=== PATIENT | male | born 1995 | race Caucasian/White ===

== ENCOUNTER 2016-09-03 19:59 | Emergency (ER) | payer OTHER ==
--- NOTE | 2016-09-03 21:01 | DIAGNOSTIC IMAGING REPORT ---
PROCEDURE: CT HEAD WITHOUT CONTRAST INDICATION: HEADACHE TECHNIQUE: Noncontrast axial images with sagittal and coronal reformations. COMPARISON: None. FINDINGS: Brain and ventricles are normal. No evidence of an acute process or hemorrhage. Mild to moderate mucosal thickening in the left anterior ethmoid air cells with mild changes in the right anterior ethmoid air cells. There is a 1.5 cm chronic retention cyst in the right maxillary sinus. The rest of the sinuses and mastoids are normal IMPRESSION: 1. Mild to moderate mucosal thickening in anterior ethmoid air cells (left greater right). Findings are compatible with sinusitis (acute versus chronic). 2. Otherwise negative head CT. No evidence of intracranial abnormality. 3. Findings discussed with BRAN Carvajal at [address] scans at this facility use dose modulation, iterative reconstruction, and/or weight-based dosing when appropriate to reduce radiation dose to as low as reasonably achievable.
--- NOTE | 2016-09-03 21:03 | ED ORDER SUMMARY ---
..... Patient: MARCO NOLAN OrderSheet [facility] VisitID: [id number] [place] [address] 20y, M Registration Date/Time: 09/03/2016 ORDER SHEET Weight: 74.8 kg (stated) Allergies: No Known Drug Allergy GENERAL ORDERS: CT Head wo Cont Urgent (20:35 09/03/2016 HBivens A.R.N.P.) (Ack 20:39 AMcQuoid ER Tech1) (21:06 MCampbell) MEDICATION ORDERS: IV FLUIDS: Reglan IV 10 mg (NOW) (20:35 09/03/2016 HBivens A.R.N.P.) (Ack 20:45 EInderbitzen R.N.) (20:55 EInderbitzen R.N.) Toradol IV 30 mg (NOW) (20:35 09/03/2016 HBivens A.R.N.P.) (Ack 20:45 EInderbitzen R.N.) (20:55 EInderbitzen R.N.) Benadryl IV 25 mg (NOW) (20:35 09/03/2016 HBivens A.R.N.P.) (Ack 20:45 EInderbitzen R.N.) (20:55 EInderbitzen R.N.) ORDER SHEET NOTES: [Electronically signed by Patti Hidalgo R.N. (21:32 09/03/2016)] [Electronically signed by Maya Amato A.R.N.P. (21:44 09/03/2016)] [Electronically locked/signed by Patti Hidalgo R.N. (21:32 09/03/2016)]
--- NOTE | 2016-09-03 21:03 | ED CLINICAL REPORT ---
Clinical Report - Physicians/Mid Levels [facility] [address] [place] [address] 09/03/2016 20:01 Patient: MARCO NOLAN Time Seen: 20:29; initial patient contact, initial documentation, patient care assumed. Arrived- By private vehicle. Historian- patient. HISTORY OF PRESENT ILLNESS Chief Complaint: HEADACHE. Is still present. This started today. It is described as "pain". Located in the region of the left eye, left temporal region and facial region. No neck pain. At its maximum, severity described as severe. When seen in the E.D., severity described as severe. Modifying factors: worsened by bright light. The patient has had photophobia. There has been no eye redness or discharge, matting or foreign body sensation. He has had nausea and vomiting. The vomiting has occurred only once. No preceding symptoms, blurred vision, numbness or weakness. (took significant others imitrex, and he threw it up). No recent travel. Similar symptoms previously: None. Recent medical care: Not recently seen/assessed. REVIEW OF SYSTEMS No fever, ear pain, sore throat or head injury. He has had sinus pressure and a cough. couple of days ago, came down with cold, stuffy nose, cough, congestion, sinus pain. All systems otherwise negative, except as recorded above. PAST HISTORY Negative. SOCIAL HISTORY Never smoker. Occasional alcohol use. No drug use. No recent travel. Is a local resident. FAMILY HISTORY Hypertension in first-degree relative (father). ADDITIONAL NOTES The nursing notes have been reviewed with agreement regarding the chief complaint, HPI, ROS, PMH and patient medications and allergies. PHYSICAL EXAM Vital Signs: 09/03/2016 20:13 BP: 147/96. HR: 64. RR: 18. O2 saturation: 100%. Temp: 97.6 F. Pain level now: 10/10. Have been reviewed as normal and appear to be correct. Appearance: Alert. No acute distress. Eyes: Pupils equal, round and reactive to light. Eyes normal inspection. ENT: Ears normal. Nose normal. Pharynx normal. Neck: Normal inspection. Neck supple. CVS: Normal heart rate and rhythm. Heart sounds normal. Pulses normal. Respiratory: No respiratory distress. Breath sounds normal. Abdomen: Soft and nontender. No organomegaly. Back: Normal inspection. Skin: Skin warm and dry. Normal skin color. No rash. Normal skin turgor. Extremities: Extremities exhibit normal ROM. No lower extremity edema. Neuro: Oriented X 3. Alert. Mood/affect normal. Speech normal. Cranial nerves normal (as tested). No cerebellar findings. No motor deficit. No sensory deficit. LABS, X-RAYS, AND EKG CT Head: . (IMPRESSION: 1. Mild to moderate mucosal thickening in anterior ethmoid air cells (left greater right). Findings are compatible with sinusitis (acute versus chronic). 2. Otherwise negative head CT. No evidence of intracranial abnormality. 3. Findings discussed with BRAN Carvajal at [address] scans at this facility use dose modulation, iterative reconstruction, and/or weight-based dosing when appropriate to reduce radiation dose to as low as reasonably achievable. Electronically Final signed by:Tyler Wyatt MD 09/03/2016 8:57:39 PM). The study was interpreted by the radiologist and discussed with the radiologist. Interpretation time: 20:58. PROGRESS AND PROCEDURES Patient and spouse counseled in person regarding the patient's stable condition, test results and diagnosis. 21:03. Differential Diagnosis: I considered migraine, cluster headache, subarachnoid hemorrhage, intracranial bleed, vascular malformation, cerebral aneurysm, vascular dissection, vasculitis, temporal arteritis, encephalitis, brain abscess, sinusitis, influenza, viral syndrome, analgesic abuse, hypoglycemia and trigeminal neuralgia as a possible cause of headache in this patient. This is a partial list of diagnoses considered. Above considerations are based on history, physical exam and other information. Differential diagnosis was discussed with patient and patient's spouse. Disposition: Discharged home in good and improved condition (21:03). Condition: good and stable. CLINICAL IMPRESSION Acute ethmoidal and frontal sinusitis Acute headache. INSTRUCTIONS Alternate Tylenol (Acetaminophen) and Motrin (Ibuprofen) for fever, temperature greater than 101 degrees orally. Take according to label instructions. Drink plenty of fluids. Warnings: GENERAL WARNINGS: Return or contact your physician immediately if your condition worsens or changes unexpectedly, if not improving as expected, or if other problems arise. SPECIFICALLY, return if you develop fever, vomiting, numbness, weakness, difficulty thinking, visual disturbances, fainting or extreme fatigue. Prescription Medications: Zofran 4 mg: Take 1 orally every six hours as needed for nausea/vomiting. Dispense ten (10). No refills. Substitution is permissible. Augmentin 875 mg: take 1 tablet orally every 12 hours for 10 days. No refill. Motrin 600 mg tablets: take 1 tablet orally every 6 hours as needed for pain or fever. Dispense thirty (30). No refill. Flonase nasal spray: 2 sprays to each nostril once daily for allergies. Dispense one (1) unit. No refills. Substitution is permissible. Follow-up: Follow up with your doctor in about three days even if well. Call for an appointment. Summary of care provided to patient. Understanding of the discharge instructions verbalized by patient. (Electronically signed by Maya Amato A.R.N.P. 09/03/2016 21:45)
--- NOTE | 2016-09-03 21:03 | ED NURSING NOTES ---
Clinical Report - Nurses [facility] [address] [place] [address] 09/03/2016 20:01 Patient: MARCO NOLAN TRIAGE Triage time 20:Sep 03 2016. Acuity: LEVEL 3. Chief Complaint: (severe headache). 20:13 09/03/16. --20:17 Patti Hidalgo R.N. 20:13 09/03/16. BP: 147/96. HR: 64. RR: 18. O2 saturation: 100%. Temp: 97.6 F. Pain level now: 03/04. --20:17 Patti Hidalgo R.N. 20:17 09/03/16. SEPSIS SCREEN: Sepsis Screen. Negative (no infection suspected/documented). SONIA COMA SCORE: Sonia Coma Scale: 15- eyes open spontaneously (4); best verbal response- oriented x 4 (5); best motor response- obeys commands (6). --20:17 Patti Hidalgo R.N. Weight: 74.8 kg stated. Height/Length: 69 inches Per Patient. BMI: 24.4. --20:12 Patti Hidalgo R.N. Medications None. --20:15 Patti Hidalgo R.N. Allergies No Known Drug Allergy. --20:15 Patti Hidalgo R.N. Medication/allergy information source: the patient. --20:17 Patti Hidalgo R.N. History Arrived by private vehicle. Historian: patient. Accompanied by family and spouse. This started today. ( States has had cold symptoms for a few days, today woke with severe headache, most pain localized to left worship and behind his left eye. Pain has gradually gotten worse throughout the day). No fever. 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 SOCIAL HX: Never smoker. Occasional alcohol use. No drug use. No infectious disease exposure. ABUSE ASSESSMENT: No report of abuse. SELF HARM ASSESSMENT: A self harm assessment was performed. The patient answered "no" to the question "Have you recently felt down, depressed, or hopeless?", "Have you noticed less interest or pleasure in doing things?", "Do you have thoughts of harming or killing yourself?", "Are you here because you tried to hurt yourself?", "Have you ever tried to hurt yourself before today?", "Have you recently had thoughts about harming or killing others?" and "Do you have any dangerous items in your possession?". --20:17 Patti Hidalgo R.N. PROBLEMS: no known problems. ADDITIONAL SURGERIES: no known surgeries. Interventions ID band on patient. --20:17 Patti Hidalgo R.N. PHYSICAL ASSESSMENT 20:17 09/03/16. GENERAL / NEURO / PSYCH: Alert. Oriented X 4. HEENT: Pupils equal, round and reactive to light. ( photophobia). Mucous membranes are pink. RESPIRATORY: Breath sounds within normal limits. CVS: Pulses within normal limits. GI / : ( nausea, vomiting). SKIN: Skin intact. Skin is pale. Skin is warm and dry. --20:17 Patti Hidalgo R.N. NURSING PROGRESS NOTES 20:09/03/2016 Site #1 started via IV in the left antecubital space with an 20g angiocath, with aseptic technique and good blood return; one attempt. Blood drawn: rainbow set. Labeled in the presence of the patient and sent to the lab. Saline lock flushed with 10 mL saline. --20:18 Patti Hidalgo R.N. 20:18 09/03/16. ( Lights dimmed for patient comfort). --20:29 Patti Hidalgo R.N. 20:09/03/16. The initial plan of care for this patient includes an assessment with efforts to address the presence of pain; impairment of the neurological system. This plan of care was discussed with the patient. Patient gowned. Reassurance given. Patient identifiers checked. Call light placed in reach. Side rails up x 1. Bed placed in lowest position. Brakes of bed on. Patient ready for evaluation. --20:18 Patti Hidalgo R.N. 20:50 09/03/2016 Toradol IVP 30 mg given over 1 minute(s) via site #1. Allergies verified and confirmed 5 rights. IV patency established. IV site checked: no pain, redness, or swelling. IV flushed thoroughly pre- and post-medication administration. IVP given by RN. --20:55 Patti Hidalgo R.N. 20:52 09/03/2016 Benadryl (DiphenhydrAMINE HCl) IVP 25 mg given over 1 minute(s) via site #1. Allergies verified and confirmed 5 rights. IV patency established. IV site checked: no pain, redness, or swelling. IV flushed thoroughly pre- and post-medication administration. IVP given by RN. --20:55 Patti Hidalgo R.N. 20:54 09/03/2016 Reglan (Metoclopramide HCl) IVP 10 mg given over 10 minute(s) via site #1. Allergies verified and confirmed 5 rights. IV patency established. IV site checked: no pain, redness, or swelling. IV flushed thoroughly pre- and post-medication administration. IVP given by RN. --20:55 Patti Hidalgo R.N. 21:22 09/03/16. Reassessment after medication administered. He has had no adverse reaction. Overall patient status is improved- he states feels better. GENERAL / NEURO / PSYCH: The patient reports headache is still present but improving and is currently mild in severity. --21:22 Patti Hidalgo R.N. 21:23 09/03/16. BP: 104/52. HR: 60. RR: 16. O2 saturation: 100%. Temp: 98.0 F. Pain level now 08/02. --21:23 Patti Hidalgo R.N. DISPOSITION / DISCHARGE 21:32 09/03/16. Departure time: 21:Sep 03 2016. Condition at departure: improved and stable. The goals identified in the patient's plan of care were met. No learning barriers present. Discharge instructions provided and reviewed with the patient and spouse. Reviewed medication(s) side effects, precautions, dosing and course information. Prescription(s) given to the patient. Reviewed referral to a primary care physician for followup. Summary of care provided to patient via paper. Patient and spouse verbalized understanding. Written instructions provided in [place]. The patient was discharged home and accompanied by spouse. He left the Emergency Department ambulatory and via private vehicle. Spouse driving. --21:32 Patti Hidalgo R.N. 21:23 09/03/16. BP: 104/52. HR: 60. RR: 16. O2 saturation: 100%. Temp: 98.0 F. Pain level now 08/02. 20:13 09/03/16. BP: 147/96. HR: 64. RR: 18. O2 saturation: 100%. Temp: 97.6 F. Pain level now: 03/04. --21:32 Patti Hidalgo R.N. Locked/Released at 09/03/2016 21:32 by Patti Hidalgo R.N.
--- NOTE | 2016-09-03 21:03 | ED NURSING NOTES ---
Clinical Report - Nurses [facility] [address] [place] [address] 09/03/2016 20:01 Patient: MARCO NOLAN TRIAGE Triage time 20:Sep 03 2016. Acuity: LEVEL 3. Chief Complaint: (severe headache). 20:13 09/03/16. --20:17 Patti Hidalgo R.N. 20:13 09/03/16. BP: 147/96. HR: 64. RR: 18. O2 saturation: 100%. Temp: 97.6 F. Pain level now: 03/04. --20:17 Patti Hidalgo R.N. 20:17 09/03/16. SEPSIS SCREEN: Sepsis Screen. Negative (no infection suspected/documented). SONIA COMA SCORE: Sonia Coma Scale: 15- eyes open spontaneously (4); best verbal response- oriented x 4 (5); best motor response- obeys commands (6). --20:17 Patti Hidalgo R.N. Weight: 74.8 kg stated. Height/Length: 69 inches Per Patient. BMI: 24.4. --20:12 Patti Hidalgo R.N. Medications None. --20:15 Patti Hidalgo R.N. Allergies No Known Drug Allergy. --20:15 Patti Hidalgo R.N. Medication/allergy information source: the patient. --20:17 Patti Hidalgo R.N. History Arrived by private vehicle. Historian: patient. Accompanied by family and spouse. This started today. ( States has had cold symptoms for a few days, today woke with severe headache, most pain localized to left uatsdin and behind his left eye. Pain has gradually gotten worse throughout the day). No fever. 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 SOCIAL HX: Never smoker. Occasional alcohol use. No drug use. No infectious disease exposure. ABUSE ASSESSMENT: No report of abuse. SELF HARM ASSESSMENT: A self harm assessment was performed. The patient answered "no" to the question "Have you recently felt down, depressed, or hopeless?", "Have you noticed less interest or pleasure in doing things?", "Do you have thoughts of harming or killing yourself?", "Are you here because you tried to hurt yourself?", "Have you ever tried to hurt yourself before today?", "Have you recently had thoughts about harming or killing others?" and "Do you have any dangerous items in your possession?". --20:17 Patti Hidalgo R.N. PROBLEMS: no known problems. ADDITIONAL SURGERIES: no known surgeries. Interventions ID band on patient. --20:17 Patti Hidalgo R.N. PHYSICAL ASSESSMENT 20:17 09/03/16. GENERAL / NEURO / PSYCH: Alert. Oriented X 4. HEENT: Pupils equal, round and reactive to light. ( photophobia). Mucous membranes are pink. RESPIRATORY: Breath sounds within normal limits. CVS: Pulses within normal limits. GI / : ( nausea, vomiting). SKIN: Skin intact. Skin is pale. Skin is warm and dry. --20:17 Patti Hidalgo R.N. NURSING PROGRESS NOTES 20:09/03/2016 Site #1 started via IV in the left antecubital space with an 20g angiocath, with aseptic technique and good blood return; one attempt. Blood drawn: rainbow set. Labeled in the presence of the patient and sent to the lab. Saline lock flushed with 10 mL saline. --20:18 Patti Hidalgo R.N. 20:18 09/03/16. ( Lights dimmed for patient comfort). --20:29 Patti Hidalgo R.N. 20:09/03/16. The initial plan of care for this patient includes an assessment with efforts to address the presence of pain; impairment of the neurological system. This plan of care was discussed with the patient. Patient gowned. Reassurance given. Patient identifiers checked. Call light placed in reach. Side rails up x 1. Bed placed in lowest position. Brakes of bed on. Patient ready for evaluation. --20:18 Patti Hidalgo R.N. 20:50 09/03/2016 Toradol IVP 30 mg given over 1 minute(s) via site #1. Allergies verified and confirmed 5 rights. IV patency established. IV site checked: no pain, redness, or swelling. IV flushed thoroughly pre- and post-medication administration. IVP given by RN. --20:55 Patti Hidalgo R.N. 20:52 09/03/2016 Benadryl (DiphenhydrAMINE HCl) IVP 25 mg given over 1 minute(s) via site #1. Allergies verified and confirmed 5 rights. IV patency established. IV site checked: no pain, redness, or swelling. IV flushed thoroughly pre- and post-medication administration. IVP given by RN. --20:55 Patti Hidalgo R.N. 20:54 09/03/2016 Reglan (Metoclopramide HCl) IVP 10 mg given over 10 minute(s) via site #1. Allergies verified and confirmed 5 rights. IV patency established. IV site checked: no pain, redness, or swelling. IV flushed thoroughly pre- and post-medication administration. IVP given by RN. --20:55 Patti Hidalgo R.N. 21:22 09/03/16. Reassessment after medication administered. He has had no adverse reaction. Overall patient status is improved- he states feels better. GENERAL / NEURO / PSYCH: The patient reports headache is still present but improving and is currently mild in severity. --21:22 Patti Hidalgo R.N. 21:23 09/03/16. BP: 104/52. HR: 60. RR: 16. O2 saturation: 100%. Temp: 98.0 F. Pain level now 08/02. --21:23 Patti Hidalgo R.N. DISPOSITION / DISCHARGE 21:32 09/03/16. Departure time: 21:Sep 03 2016. Condition at departure: improved and stable. The goals identified in the patient's plan of care were met. No learning barriers present. Discharge instructions provided and reviewed with the patient and spouse. Reviewed medication(s) side effects, precautions, dosing and course information. Prescription(s) given to the patient. Reviewed referral to a primary care physician for followup. Summary of care provided to patient via paper. Patient and spouse verbalized understanding. Written instructions provided in [place]. The patient was discharged home and accompanied by spouse. He left the Emergency Department ambulatory and via private vehicle. Spouse driving. --21:32 Patti Hidalgo R.N. 21:23 09/03/16. BP: 104/52. HR: 60. RR: 16. O2 saturation: 100%. Temp: 98.0 F. Pain level now 08/02. 20:13 09/03/16. BP: 147/96. HR: 64. RR: 18. O2 saturation: 100%. Temp: 97.6 F. Pain level now: 03/04. --21:32 Patti Hidalgo R.N. Locked/Released at 09/03/2016 21:32 by Patti Hidalgo R.N.
--- NOTE | 2016-09-03 21:03 | ED ORDER SUMMARY ---
..... Patient: MARCO NOLAN OrderSheet [facility] VisitID: [id number] [place] [address] 20y, M Registration Date/Time: 09/03/2016 ORDER SHEET Weight: 74.8 kg (stated) Allergies: No Known Drug Allergy GENERAL ORDERS: CT Head wo Cont Urgent (20:35 09/03/2016 HBivens A.R.N.P.) (Ack 20:39 AMcQuoid ER Tech1) (21:06 MCampbell) MEDICATION ORDERS: IV FLUIDS: Reglan IV 10 mg (NOW) (20:35 09/03/2016 HBivens A.R.N.P.) (Ack 20:45 EInderbitzen R.N.) (20:55 EInderbitzen R.N.) Toradol IV 30 mg (NOW) (20:35 09/03/2016 HBivens A.R.N.P.) (Ack 20:45 EInderbitzen R.N.) (20:55 EInderbitzen R.N.) Benadryl IV 25 mg (NOW) (20:35 09/03/2016 HBivens A.R.N.P.) (Ack 20:45 EInderbitzen R.N.) (20:55 EInderbitzen R.N.) ORDER SHEET NOTES: [Electronically signed by Patti Hidalgo R.N. (21:32 09/03/2016)] [Electronically signed by Maya Amato A.R.N.P. (21:44 09/03/2016)] [Electronically locked/signed by Patti Hidalgo R.N. (21:32 09/03/2016)]
--- NOTE | 2016-09-03 21:45 | ED DISCHARGE INSTRUCTIONS ---
Patient: MARCO NOLAN General Instructions [facility] VisitID: [id number] [place] [address] 20y, M Registration Date/Time: 09/03/2016 Acute ethmoidal and frontal sinusitis Acute headache. INSTRUCTIONS Alternate Tylenol (Acetaminophen) and Motrin (Ibuprofen) for fever, temperature greater than 101 degrees orally. Take according to label instructions. Drink plenty of fluids. Warnings: GENERAL WARNINGS: Return or contact your physician immediately if your condition worsens or changes unexpectedly, if not improving as expected, or if other problems arise. SPECIFICALLY, return if you develop fever, vomiting, numbness, weakness, difficulty thinking, visual disturbances, fainting or extreme fatigue. Prescription Medications: Zofran 4 mg: Take 1 orally every six hours as needed for nausea/vomiting. Dispense ten (10). No refills. Substitution is permissible. Augmentin 875 mg: take 1 tablet orally every 12 hours for 10 days. No refill. Motrin 600 mg tablets: take 1 tablet orally every 6 hours as needed for pain or fever. Dispense thirty (30). No refill. Flonase nasal spray: 2 sprays to each nostril once daily for allergies. Dispense one (1) unit. No refills. Substitution is permissible. Follow-up: Follow up with your doctor in about three days even if well. Call for an appointment. Summary of care provided to patient. Understanding of the discharge instructions verbalized by patient. ADDITIONAL INFORMATION Sinus Headache The sinuses are air-filled spaces within the bones of the face. They connect to the inside of the nose. Sinusitis is an inflammation of the tissue lining the sinus cavity. Sinus inflammation can occur during a cold or hay fever (allergies to pollens and other particles in the air) and cause symptoms of sinus congestion and fullness and perhaps a low-grade fever. An infection is usually present when there is also facial pain or headache. There may also be green or yellow drainage from the nose or into the back of the throat (postnasal drip). Antibiotics are often prescribed to treat this condition. Sinus headache may cause pain in different locations, depending on which sinuses are infected. There may be pain in the temples, forehead, top of the head, behind or around the eye, across the cheekbone, or into the upper teeth. You may find that changing your position, sitting upright or lying down, will bring some relief. Home Care: Drink plenty of water, hot tea, and other liquids to stay well hydrated. This thins the mucus and promotes sinus drainage. Apply heat to the painful areas of the face. Use a towel soaked in hot water. Or, grinding and polishing laborer the shower and direct the hot spray onto your face. This is a good way to inhale warm water vapor and get heat on your face at the same time. (Cover your mouth and nose with your hands so you can still breathe as you do this.) Use a vaporizer with products such as Mama VapoRub (contains menthol) at night. Suck on peppermint, menthol, or eucalyptus hard candies during the day. An expectorantcontaining guaifenesin (such as Robitussin) helps to thin the mucus and promote drainage from the sinuses. [id number]-[id number] decongestantsmay be used unless a similar medicine was prescribed. Nasal sprays work the fastest. Use one that contains phenylephrine (Elias-Synephrine, Sinex, and others) or oxymetazoline (Afrin). First blow the nose gently to remove mucus, then apply the drops. Do not use these medicines more often than directed on the label or for more than3 days, or symptoms may worsen. You may also use tablets containing pseudoephedrine (Sudafed). Many sinus remedies combine ingredients, which may increase side effects. Read the labels or ask the pharmacist for help. [NOTE: Persons with high blood pressure should not use decongestants. They can raise blood pressure.] Antihistaminesare useful if allergies are a cause of your sinusitis. The mildest one is chlorpheniramine (available without a prescription). The dose for adults is 8-12 mg three times a day. [NOTE: Do not use chlorpheniramine if you have glaucoma or if you are a man with trouble urinating due to an enlarged prostate.] Claritin (loratidine) is an antihistamine that causes less drowsiness and is a good alternative for daytime use. When allergies are the cause for sinusitis, a saline nasal rinsemay give relief. Saline nasal rinse reduces swelling and clears excess mucus. This allows sinuses to drain. Prepackaged kits are available at [facility]. These contain premixed salt packets and an irrigation device. If antibiotics have been prescribed to treat an acute sinus infection, talk to your doctor before using a nasal rinse to be sure it is safe for you. You may use acetaminophen (Tylenol) or ibuprofen (Motrin, Advil) to control pain, unless another pain medicine was prescribed. [NOTE: If you have chronic liver or kidney disease or ever had a stomach ulcer, talk with your doctor before using these medicines.] (Aspirin should never be used in anyone under 18 years of age who is ill with a fever. It may cause severe liver damage.) If antibiotics were given, finish the full course, even if you are feeling better after a few days. Follow Up with your doctor or this facility in one week or as instructed by our staff if not improving. Get Prompt Medical Attention if any of the following occur: Facial pain or headache becomes more severe Stiff neck Unusual drowsiness or confusion Swelling of the forehead or eyelids Vision problems including blurred or double vision Fever over 100.4 F (38.0 C) oral for more than3 days on antibiotics Bleeding from the nose or throat Seizure Sinusitis [Abx Tx] The sinuses are air-filled spaces within the bones of the face. They connect to the inside of the nose. Sinusitis is an inflammation of the tissue lining the sinus cavity. Sinus inflammation can occur during a cold or hay-fever (allergies to pollens and other particles in the air) and cause symptoms of sinus congestion and fullness. A sinus infection causes fever, headache and facial pain. There is usually green or yellow drainage from the nose or into the back of the throat (post-nasal drip). Antibiotics are prescribed to treat this condition. Home Care: Drink plenty of water, hot tea, and other liquids to stay well hydrated. This thins the mucus and promotes sinus drainage. Apply heat to the painful areas of the face. Use a towel soaked in hot water. Or, grinding and polishing laborer the shower and direct the hot spray onto your face. This is a good way to inhale warm water vapor and get heat on your face at the same time. (Cover your mouth and nose with your hands so you can still breathe as you do this.) Use a vaporizer with products such as Vicks VapoRub (contains menthol) at night. Suck on peppermint, menthol or eucalyptus hard candies during the day. An expectorant containing guaifenesin (such as Robitussin), helps to thin the mucus and promote drainage from the sinuses. [id number]-yxa-qqahgmv decongestants may be used unless a similar medicine was prescribed. Nasal sprays work the fastest. Use one that contains phenylephrine (Elias-synephrine, Sinex and others) or oxymetazoline (Afrin). First blow the nose gently to remove mucus, then apply the drops. Do not use these medicines more often than directed on the label or for more than three days or symptoms may worsen. You may also use tablets containing pseudoephedrine (Sudafed). Many sinus remedies combine ingredients, which may increase side effects. Read the labels or ask the pharmacist for help. NOTE: Persons with high blood pressure should not use decongestants. They can raise blood pressure. Antihistamines are useful if allergies are a cause of your sinusitis. The mildest one is chlorpheniramine (available without a prescription). The dose for adults is 8-12mg three times a day. [NOTE: Do not use chlorpheniramine if you have glaucoma or if you are a man with trouble urinating due to an enlarged prostate.] Claritin (loratidine) is an antihistamine that causes less drowsiness and is a good alternative for daytime use. Do not use nasal rinses or irrigation during an acute sinus infection, unless advised by your doctor. Rinsing may spread the infection to other sinuses. You may use acetaminophen (Tylenol) or ibuprofen (Motrin, Advil) to control pain, unless another pain medicine was prescribed. [ NOTE: If you have chronic liver or kidney disease or ever had a stomach ulcer, talk with your doctor before using these medicines.] (Aspirin should never be used in anyone under 18 years of age who is ill with a fever. It may cause severe liver damage.) Finish the full course, even if you are feeling better after a few days. Follow Up with your doctor or this facility in one week or as instructed by our staff if not improving. Get Prompt Medical Attention if any of the following occur: Facial pain or headache becomes more severe Stiff neck Unusual drowsiness or confusion, or not acting like your normal self Swelling of the forehead or eyelids Vision problems including blurred or double vision Fever of 100.4F (38C) or higher, or as directed by your healthcare provider Seizure Fever Control (Adult) A fever is a natural reaction of the body to an illness. In most cases, the temperature itself is not harmful. It actually helps the body fight infections. A fever does not need to be treated unless you feel very uncomfortable. Home Care If you feel warm, check your temperature. If you feel very uncomfortable and your temperature is at or higher than 100.4F (38C) oral, you may take acetaminophen (Tylenol) every 4 to 6 hours. If you cant take or keep down oral medicine, ask your pharmacist for Tylenol suppositories, which you can get without a prescription. If the fever does not respond to acetaminophen within 1 hour, take ibuprofen (Advil or Motrin). If this works, keep taking the ibuprofen every 6 to 8 hours. Note: If you have chronic liver or kidney disease or ever had a stomach ulcer or GI bleeding, talk with your doctor before using these medications. If either medication alone does not keep the fever down, you may alternate the two medicines every 3 to 4 hours, only if your healthcare provider has instructed you to do so. For example, take Motrin then wait 3 hours, take Tylenol then wait 3 hours, take Motrin, and so on. Follow your healthcare providers instructions exactly. Clothing: Keep clothing light because excess body heat is lost through the skin. The fever will go up if you wear extra layers or wrap in blankets. Fluids: Fever causes the body to lose water through evaporation. Drink plenty of fluids such as water, juice, clear sodas, lisa era, or lemonade. Do not use aspirin in anyone under 18 years of age who is ill with a fever. It can cause severe liver damage. Follow Up with your doctor or as advised by our staff if you do not get better after 48 hours. Get Prompt Medical Attention if any of the following occur: Fever does not get better after taking fever medication Fast or difficult breathing Earache, sinus pain, stiff or painful neck, headache, repeated diarrhea or vomiting You feel unusually irritable, drowsy, or confused A rash appears You feel weak or dizzy, or that you might faint Ondansetron Oral disintegrating tablet What is this medicine? ONDANSETRON (on JAVIER se clara) is used to treat nausea and vomiting caused by chemotherapy. It is also used to prevent or treat nausea and vomiting after surgery. How should I use this medicine? These tablets are made to dissolve in the mouth. Do not try to push the tablet through the foil backing. With dry hands, peel away the foil backing and gently remove the tablet. Place the tablet in the mouth and allow it to dissolve, then swallow. While you may take these tablets with water, it is not necessary to do so. Talk to your physics technical officer regarding the use of this medicine in children. Special care may be needed. What side effects may I notice from receiving this medicine? Side effects that you should report to your doctor or health adult daycare coordinator as soon as possible: allergic reactions like skin rash, itching or hives, swelling of the face, lips, or tongue breathing problems dizziness fast or irregular heartbeat feeling faint or lightheaded, falls fever and chills swelling of the hands and feet tightness in the chest Side effects that usually do not require medical attention (report to your doctor or health adult daycare coordinator if they continue or are bothersome): constipation or diarrhea headache What may interact with this medicine? Do not take this medicine with any of the following medications: -apomorphine -cisapride -dofetilide -dronedarone -pimozide -thioridazine -ziprasidone This medicine may also interact with the following medications: -carbamazepine -phenytoin -rifampicin -tramadol -other medicines that prolong the QT interval (cause an abnormal heart rhythm) What if I miss a dose? If you miss a dose, take it as soon as you can. If it is almost time for your next dose, take only that dose. Do not take double or extra doses. Where should I keep my medicine? Keep out of the reach of children. Store between 2 and 30 degrees C (36 and 86 degrees F). Throw away any unused medicine after the expiration date. What should I tell my health care provider before I take this medicine? They need to know if you have any of these conditions: heart disease history of irregular heartbeat liver disease low levels of magnesium or potassium in the blood an unusual or allergic reaction to ondansetron, granisetron, other medicines, foods, dyes, or preservatives or trying to get breast-feeding What should I watch for while using this medicine? Check with your doctor or health adult daycare coordinator as soon as you can if you have any sign of an allergic reaction. Amoxicillin Trihydrate, Clavulanate Potassium Oral tablet What is this medicine? AMOXICILLIN; CLAVULANIC ACID (a mox i RACHEL in; ISAK rico mao ic id) is a penicillin antibiotic. It is used to treat certain kinds of bacterial infections. It will not work for colds, flu, or other viral infections. How should I use this medicine? Take this medicine by mouth with a full glass of water. Follow the directions on the prescription label. Take at the start of a meal. Do not crush or chew. If the tablet has a score line, you may cut it in half at the score line for easier swallowing. Take your medicine at regular intervals. Do not take your medicine more often than directed. Take all of your medicine as directed even if you think you are better. Do not skip doses or stop your medicine early. Talk to your physics technical officer regarding the use of this medicine in children. Special care may be needed. What side effects may I notice from receiving this medicine? Side effects that you should report to your doctor or health adult daycare coordinator as soon as possible: allergic reactions like skin rash, itching or hives, swelling of the face, lips, or tongue breathing problems dark urine fever or chills, sore throat redness, blistering, peeling or loosening of the skin, including inside the mouth seizures trouble passing urine or change in the amount of urine unusual bleeding, bruising unusually weak or tired white patches or sores in the mouth or throat Side effects that usually do not require medical attention (report to your doctor or health adult daycare coordinator if they continue or are bothersome): diarrhea dizziness headache nausea, vomiting stomach upset vaginal or anal irritation What may interact with this medicine? allopurinol anticoagulants control pills methotrexate probenecid What if I miss a dose? If you miss a dose, take it as soon as you can. If it is almost time for your next dose, take only that dose. Do not take double or extra doses. Where should I keep my medicine? Keep out of the reach of children. Store at room temperature below 25 degrees C (77 degrees F). Keep container tightly closed. Throw away any unused medicine after the expiration date. What should I tell my health care provider before I take this medicine? They need to know if you have any of these conditions: bowel disease, like colitis kidney disease liver disease mononucleosis an unusual or allergic reaction to amoxicillin, penicillin, cephalosporin, other antibiotics, clavulanic acid, other medicines, foods, dyes, or preservatives or trying to get breast-feeding What should I watch for while using this medicine? Tell your doctor or health adult daycare coordinator if your symptoms do not improve. Do not treat diarrhea with over the counter products. Contact your doctor if you have diarrhea that lasts more than 2 days or if it is severe and watery. If you have diabetes, you may get a false-positive result for sugar in your urine. Check with your doctor or health adult daycare coordinator. control pills may not work properly while you are taking this medicine. Talk to your doctor about using an extra method of control. Ibuprofen Oral tablet What is this medicine? IBUPROFEN (eye BYOO proe fen) is a non-steroidal anti-inflammatory drug (NSAID). It is used for dental pain, fever, headaches or migraines, osteoarthritis, rheumatoid arthritis, or painful monthly periods. It can also relieve minor aches and pains caused by a cold, flu, or sore throat. How should I use this medicine? Take this medicine by mouth with a glass of water. Follow the directions on the prescription label. Take this medicine with food if your stomach gets upset. Try to not lie down for at least 10 minutes after you take the medicine. Take your medicine at regular intervals. Do not take your medicine more often than directed. A special MedGuide will be given to you by the pharmacist with each prescription and refill. Be sure to read this information carefully each time. Talk to your physics technical officer regarding the use of this medicine in children. Special care may be needed. What side effects may I notice from receiving this medicine? Side effects that you should report to your doctor or health adult daycare coordinator as soon as possible: allergic reactions like skin rash, itching or hives, swelling of the face, lips, or tongue black or bloody stools, blood in the urine or in vomit breathing problems changes in vision chest pain general ill feeling or flu-like symptoms nausea or vomiting redness, blistering, peeling or loosening of the skin, including inside the mouth slurred speech or weakness on one side of the body stomach pain unexplained weight gain or swelling unusually weak or tired yellowing of eyes or skin Side effects that usually do not require medical attention (report to your doctor or health adult daycare coordinator if they continue or are bothersome): constipation or diarrhea dizziness gas or heartburn stomach upset What may interact with this medicine? Do not take this medicine with any of the following medications: cidofovir ketorolac methotrexate pemetrexed This medicine may also interact with the following medications: alcohol aspirin diuretics lithium other drugs for inflammation like prednisone warfarin What if I miss a dose? If you miss a dose, take it as soon as you can. If it is almost time for your next dose, take only that dose. Do not take double or extra doses. Where should I keep my medicine? Keep out of the reach of children. Store at room temperature between 15 and 30 degrees C (59 and 86 degrees F). Keep container tightly closed. Throw away any unused medicine after the expiration date. What should I tell my health care provider before I take this medicine? They need to know if you have any of these conditions: asthma cigarette smoker drink more than 3 alcohol containing drinks a day heart disease or circulation problems such as heart failure or leg edema (fluid retention) high blood pressure kidney disease liver disease stomach bleeding or ulcers an unusual or allergic reaction to ibuprofen, aspirin, other NSAIDS, other medicines, foods, dyes, or preservatives or trying to get breast-feeding What should I watch for while using this medicine? Tell your doctor or healthcare professional if your symptoms do not start to get better or if they get worse. This medicine does not prevent heart attack or stroke. In fact, this medicine may increase the chance of a heart attack or stroke. The chance may increase with longer use of this medicine and in people who have heart disease. If you take aspirin to prevent heart attack or stroke, talk with your doctor or health adult daycare coordinator. Do not take other medicines that contain aspirin, ibuprofen, or naproxen with this medicine. Side effects such as stomach upset, nausea, or ulcers may be more likely to occur. Many medicines available without a prescription should not be taken with this medicine. This medicine can cause ulcers and bleeding in the stomach and intestines at any time during treatment. Ulcers and bleeding can happen without warning symptoms and can cause . To reduce your risk, do not smoke cigarettes or drink alcohol while you are taking this medicine. You may get drowsy or dizzy. Do not drive, use machinery, or do anything that needs mental alertness until you know how this medicine affects you. Do not stand or sit up quickly, especially if you are an older patient. This reduces the risk of dizzy or fainting spells. This medicine can cause you to bleed more easily. Try to avoid damage to your teeth and gums when you brush or floss your teeth. Fluticasone Propionate Nasal spray, solution What is this medicine? FLUTICASONE (floo TIK a sone) is a corticosteroid. It helps decrease inflammation in your nose. This medicine is used to treat the symptoms of allergies like sneezing, itching, and runny or stuffy nose. How should I use this medicine? This medicine is for use in the nose. Follow the directions on your prescription label. This medicine works best if used regularly. Do not use more often than directed. Make sure that you are using your nasal spray correctly. Ask you doctor or health care provider if you have any questions. Talk to your physics technical officer regarding the use of this medicine in children. While this drug may be prescribed for children as young as 4 years old for selected conditions, precautions do apply. What side effects may I notice from receiving this medicine? Side effects that you should report to your doctor or health adult daycare coordinator as soon as possible: allergic reactions like skin rash, itching or hives, swelling of the face, lips, or tongue changes in vision flu-like symptoms white patches or sores in the mouth or nose Side effects that usually do not require medical attention (report to your doctor or health adult daycare coordinator if they continue or are bothersome): burning or irritation inside the nose or throat cough headache nosebleed unusual taste or smell What may interact with this medicine? ketoconazole metyrapone some medicines for HIV vaccines What if I miss a dose? If you miss a dose, use it as soon as you remember. If it is almost time for your next dose, use only that dose and continue with your regular schedule. Do not use double or extra doses. Where should I keep my medicine? Keep out of the reach of children. Store at room temperature between 15 and 30 degrees C (59 and 86 degrees F). Throw away any unused medicine after the expiration date. What should I tell my health care provider before I take this medicine? They need to know if you have any of these conditions: infection, like tuberculosis, herpes, or fungal infection recent surgery on nose or sinuses taking corticosteroid by mouth an unusual or allergic reaction to fluticasone, steroids, other medicines, foods, dyes, or preservatives or trying to get breast-feeding What should I watch for while using this medicine? Visit your doctor or health adult daycare coordinator for regular checks on your progress. Some symptoms may improve within 12 hours after starting use. Check with your doctor or health adult daycare coordinator if there is no improvement in your condition after 3 weeks of use. Do not come in contact with people who have chickenpox or the measles while you are taking this medicine. If you do, call your doctor right away. You have been given the following additional information: Sinus Headache Sinusitis, Abx Tx Fever Control (Adult) Ondansetron Oral disintegrating tablet Amoxicillin Trihydrate, Clavulanate Potassium Oral tablet Ibuprofen Oral tablet Fluticasone Propionate Nasal spray, solution (Electronically signed by Maya Amato A.R.N.P. 09/03/2016 21:45)
--- NOTE | 2016-09-03 21:45 | ED MED RECONCILIATION SUMMARY ---
Patient: MARCO NOLAN Medication Reconciliation Report [facility] VisitID: [id number] [place] [address] 20y, M Registration Date/Time: 09/03/2016 Weight: 74.8 kg Height/Length: 69 in. BMI: 24.4 ALLERGIES: No Known Drug Allergy The patient's Home Medications are listed below: NONE. The source(s) of the original Home Medication information: patient The following Medications were given to the patient in the Emergency Department: Toradol [IVP] IVP 30 mg, administered: 09/03/2016 8:50:00 PM Benadryl [IVP] IVP 25 mg, administered: 09/03/2016 8:52:00 PM Reglan [IVP] IVP 10 mg, administered: 09/03/2016 8:54:00 PM The following Medications were prescribed to the patient: Zofran 4 mg: Take 1 orally every six hours as needed for nausea/vomiting. Dispense ten (10). No refills. Substitution is permissible. -- Maya Amato, A.R.N.P. Augmentin 875 mg: take 1 tablet orally every 12 hours for 10 days. No refill. -- Maya Amato, A.R.N.P. Motrin 600 mg tablets: take 1 tablet orally every 6 hours as needed for pain or fever. Dispense thirty (30). No refill. -- Maya Amato, A.R.N.P. Flonase nasal spray: 2 sprays to each nostril once daily for allergies. Dispense one (1) unit. No refills. Substitution is permissible. -- Maya Amato A.R.N.P.
--- NOTE | 2016-09-03 21:45 | ED MED RECONCILIATION SUMMARY ---
Patient: MARCO NOLAN Medication Reconciliation Report [facility] VisitID: [id number] [place] [address] 20y, M Registration Date/Time: 09/03/2016 Weight: 74.8 kg Height/Length: 69 in. BMI: 24.4 ALLERGIES: No Known Drug Allergy The patient's Home Medications are listed below: NONE. The source(s) of the original Home Medication information: patient The following Medications were given to the patient in the Emergency Department: Toradol [IVP] IVP 30 mg, administered: 09/03/2016 8:50:00 PM Benadryl [IVP] IVP 25 mg, administered: 09/03/2016 8:52:00 PM Reglan [IVP] IVP 10 mg, administered: 09/03/2016 8:54:00 PM The following Medications were prescribed to the patient: Zofran 4 mg: Take 1 orally every six hours as needed for nausea/vomiting. Dispense ten (10). No refills. Substitution is permissible. -- Maya Amato, A.R.N.P. Augmentin 875 mg: take 1 tablet orally every 12 hours for 10 days. No refill. -- Maya Amato, A.R.N.P. Motrin 600 mg tablets: take 1 tablet orally every 6 hours as needed for pain or fever. Dispense thirty (30). No refill. -- Maya Amato, A.R.N.P. Flonase nasal spray: 2 sprays to each nostril once daily for allergies. Dispense one (1) unit. No refills. Substitution is permissible. -- Maya Amato A.R.N.P.
--- NOTE | 2016-09-03 21:45 | ED MAR SUMMARY ---
..... Medication Administration Record [facility] [address] [place] [address] Patient: MARCO NOLAN Visit ID: [id number] 20y, M Weight: 74.8 kg Height/Length: 69 in BMI: 24.4 ALLERGIES: No Known Drug Allergy Given 20:50 09/03/2016 Patti Hidalgo R.N. Medication Administered: TORADOL [IVP], Dose: 30 mg IVP over 1 minute(s), Site: #1 left AC. Medication Ordered: Toradol IV 30 mg (NOW). Given 20:52 09/03/2016 Patti Hidalgo R.N. Medication Administered: BENADRYL [IVP] (DIPHENHYDRAMINE HCL), Dose: 25 mg IVP over 1 minute(s), Site: #1 left AC. Medication Ordered: Benadryl IV 25 mg (NOW). Given 20:54 09/03/2016 Patti Hidalgo R.N. Medication Administered: REGLAN [IVP] (METOCLOPRAMIDE HCL), Dose: 10 mg IVP over 10 minute(s), Site: #1 left AC. Medication Ordered: Reglan IV 10 mg (NOW).
--- NOTE | 2016-09-03 21:45 | ED MAR SUMMARY ---
..... Medication Administration Record [facility] [address] [place] [address] Patient: MARCO NOLAN Visit ID: [id number] 20y, M Weight: 74.8 kg Height/Length: 69 in BMI: 24.4 ALLERGIES: No Known Drug Allergy Given 20:50 09/03/2016 Patti Hidalgo R.N. Medication Administered: TORADOL [IVP], Dose: 30 mg IVP over 1 minute(s), Site: #1 left AC. Medication Ordered: Toradol IV 30 mg (NOW). Given 20:52 09/03/2016 Patti Hidalgo R.N. Medication Administered: BENADRYL [IVP] (DIPHENHYDRAMINE HCL), Dose: 25 mg IVP over 1 minute(s), Site: #1 left AC. Medication Ordered: Benadryl IV 25 mg (NOW). Given 20:54 09/03/2016 Patti Hidalgo R.N. Medication Administered: REGLAN [IVP] (METOCLOPRAMIDE HCL), Dose: 10 mg IVP over 10 minute(s), Site: #1 left AC. Medication Ordered: Reglan IV 10 mg (NOW).
== END 2016-09-03 21:32 | disposition home or self-care (01) ==
LOC: ED SRH 19:59
DX: J01.20 Acute ethmoidal sinusitis, unspecified (principal); J01.10 Acute frontal sinusitis, unspecified; R51 Headache; H53.149 Visual discomfort, unspecified